=== PATIENT | female | born 1970 | race Hispanic/Latino ===

== ENCOUNTER 2023-03-05 06:59 | Emergency (ER) | payer BC ==
[2023-03-05] MEDS ORDERED: Ondansetron ODT 4 MG TAB ONE (07:43)
[2023-03-05] MEDS ORDERED: Dicyclomine 20 MG TAB ONE (07:43)
== END 2023-03-05 07:49 | disposition home or self-care (01) ==
LOC: ERS 06:59
DX: N93.9 Abnormal uterine and vaginal bleeding, unspecified (principal); R19.7 Diarrhea, unspecified; R11.10 Vomiting, unspecified
CPT/HCPCS: 99283; Q0162

== ENCOUNTER 2023-05-02 11:18 | Outpatient (CLI) | payer BC | END 2023-05-02 11:19 | disposition home or self-care (01) | LOC: BICMAMMO 11:18 | PROVIDERS: ATTEND Nurse Practitioner Women's Health | DX: Z12.31 Encounter for screening mammogram for malignant neoplasm of breast (principal); Z80.3 Family history of malignant neoplasm of breast | CPT/HCPCS: 77063; 77067 ==